=== PATIENT | male | born 1980 | race American Indian/Alaskan Native ===

== ENCOUNTER 2017-12-20 14:26 | Emergency (ER) | payer SELFPAY ==
[2017-12-20 15:39] VITALS: BP 124/84
--- NOTE | 2017-12-20 18:00 | Emergency Department Report ---
- General Chief Complaint: Upper Respiratory Infection Stated Complaint: NOT STATED Time Seen by Provider: 12/20/17 17:54 Source: patient Mode of arrival: Ambulatory Limitations: No Limitations - History of Present Illness MD Complaint: fever, cough, rhinorrhea Severity: moderate Improves With: OTC cold medicine Worsens With: nothing Associated Symptoms: fever, nasal congestion, cough. denies: headache, rhinorrhea, stiff neck - Related Data Allergies Allergy/AdvReac Type Severity Reaction Status Date / Time No Known Allergies Allergy Unverified 12/20/17 15:39 ED Review of Systems ROS: Stated complaint: NOT STATED Other details as noted in HPI Comment: All other systems reviewed and negative Respiratory: cough. denies: shortness of breath Cardiovascular: denies: chest pain, palpitations Gastrointestinal: denies: abdominal pain, nausea, vomiting, diarrhea Musculoskeletal: denies: back pain Neurological: denies: headache, weakness, numbness ED Past Medical Hx - Past Medical History Previous Medical History?: No - Surgical History Past Surgical History?: No - Social History Smoking Status: Never Smoker Substance Use Type: None ED Physical Exam - General Limitations: No Limitations General appearance: alert, in no apparent distress - Head Head exam: Present: atraumatic - ENT ENT exam: Present: normal exam, normal orophraynx, mucous membranes moist - Neck Neck exam: Present: normal inspection, full ROM. Absent: tenderness, meningismus, lymphadenopathy - Respiratory Respiratory exam: Present: normal lung sounds bilaterally. Absent: respiratory distress, wheezes, rales, rhonchi, chest wall tenderness, accessory muscle use, decreased breath sounds, prolonged expiratory - Cardiovascular Cardiovascular Exam: Present: regular rate, normal rhythm, normal heart sounds - GI/Abdominal GI/Abdominal exam: Present: soft. Absent: distended, tenderness, guarding, rebound - Extremities Exam Extremities exam: Present: normal inspection - Neurological Exam Neurological exam: Present: alert, oriented X3, CN II-XII intact ED Course Vital Signs 12/20/17 15:37 Temperature 99.1 F Pulse Rate 86 Respiratory 16 Rate Blood Pressure 124/84 O2 Sat by Pulse 98 Oximetry Critical care attestation.: If time is entered above; I have spent that time in minutes in the direct care of this critically ill patient, excluding procedure time. ED Disposition Clinical Impression: Acute bronchitis Disposition: - TO HOME OR SELFCARE Is pt being admited?: No Condition: Stable Instructions: Acute Bronchitis (ED) Referrals: PRIMARY CARE, [Primary Care Provider] - 3-5 Days
[2017-12-21] MEDS ORDERED: NACL ONE (12:27)
== END 2017-12-20 18:10 | disposition home or self-care (01) ==
LOC: ED 14:26
DX: J20.9 Acute bronchitis, unspecified (principal)
CPT/HCPCS: 99282